=== PATIENT | male | born 1980 | race Caucasian/White ===

== ENCOUNTER 2021-02-13 11:13 | Emergency (ER) | payer SELFPAY ==
--- NOTE | 2021-02-13 11:15 | XR_ITS ---
WS: [id number] KUB, AP view, 02/13/2021 Clinical Data: left flank pain, ? kidney stone Comparison: None. Findings: No abnormal intraabdominal masses or calcifications are seen. There is no dilatated small bowel or ev idence of obstruction. There is a moderate amount of fecal material throughout the colon. There are clips in the left upper quadrant from surgery. XR/XR KUB [id number] Impression: Negative for renal or ureteral calculi.
[2021-02-13 11:32] VITALS: BP 154/95; PULSE 94; RESP 18; TEMP 37.6; O2SAT 98; BMI 19.2
--- NOTE | 2021-02-13 11:48 | ED_ITS ---
HPI - Abdominal Pain General: Chief Complaint: Abdominal Pain Stated Complaint: LEFT SIDE PAIN Time Seen by Provider: 02/13/21 11:41 Source: patient and family (Fianc?) Mode of arrival: ambulatory Limitations: no limitations History of Present Illness: HPI narrative: 40-year-old male patient presents to the emergency department with acute onset of left flank/left abdominal side abdominal pain, nausea vomiting and diarrhea, sudden onset that started this morning at 6 AM. 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 Recently moved here from [place]. He reports has not been able to eat or drink anything without vomiting. He reports felt normal yesterday, last meal intake was at 630 last night. He reports chills, has not been exposed to individuals with illness. His fianc?e is able to help with history of present illness and reports that she has not been ill. He denies EtOH or illicit substance abuse MD elicited complaint: abdominal pain and flank pain Pertinent past history: other (Abdominal trauma with splenectomy 1998) Pain Consistency: constant Location: LUQ, LLQ and L flank Severity: moderate Quality: cramping, stabbing and aching Migration to: no migration Relieving factors: nothing Associated Symptoms: Reports change in stool character, chills, diarrhea, fever(s), nausea and vomiting; Denies dysuria, hematochezia, hematemesis and melena Review of Systems General: Reports: 10 or more systems reviewed and unremarkable except in HPI and below Const: Reports: fever(s), chills, body aches and fatigue; Denies: night sweats or change in sleep pattern Eyes: Denies: blurry vision or eye redness ENMT: Denies: throat pain, uvular edema, dental pain, disequilibrium, nasal discharge, nasal congestion, nasal obstruction, epistaxis or post nasal drip Card: Denies: chest pain, palpitations, irregular heart rhythm, swelling of feet/ankles, dyspnea on exertion or orthopnea Resp: Denies: dyspnea, productive cough, non-productive cough, wheezing or chest congestion GI: Reports: abdominal pain, nausea, vomiting, diarrhea and change in stool character; Denies: hematemesis, hematochezia or melena : Denies: dysuria Musc: Reports: back pain (left flank); Denies: neck pain, joint warmth or joint stiffness Skin/Breast: Denies: rash or pruritus Neuro: Denies: headache(s), weakness in extremities or behavioral changes Psych: Reports: anxiety and change in appetite; Denies: depression or sleeping more Loi/Lymph: Denies: easy bruising PFSH ED PFSH: Medical History (Updated 02/13/21 @ 15:37 by MITCHEL Gómez) Tachycardia Surgical History H/O exploratory laparotomy History of total splenectomy Physical Exam Const: COMMON NORMALS: no acute distress, patient oriented x3 and alert GENERAL APPEARANCE: cooperative, well kempt, well developed and anxious NUTRITIONAL APPEARANCE: thin ORIENTATION/CONSCIOUSNESS: Yes awake, Yes oriented to person, Yes oriented to place and Yes oriented to time HENMT: COMMON NORMALS: normocephalic, atraumatic, external ears normal, Normal external nose present and moist oral mucous membranes HEAD & SCALP: normal to inspection, normocephalic and atraumatic FACE & SINUS: normal facial exam and face symmetric NOSE: Normal external nose present and Normal nares present EXTERNAL EAR: Yes external ears normal MOUTH: lip normal, tongue normal and moist mucous membranes abnormal (Dry) THROAT: tonsils normal and uvula midline; no uvular edema Eye: COMMON NORMALS: Equal, round and reactive pupils present and EOMs intact bilaterally GENERAL EYE: appearance normal, both eyes and all related structures PUPIL: Yes Equal, round and reactive pupils present Neck/C-Spine: COMMON NORMALS: full ROM and no lymphadenopathy GENERAL: Yes normal visual inspection and Yes trachea midline CERVICAL SPINE: Yes cervical ROM normal Lymph: LYMPHATIC: no lymphadenopathy noted Chest: COMMONS NORMALS: normal inspection of the chest and normal palpation of entire chest wall Resp: COMMON NORMALS: normal respiratory effort, No retractions, No use of accessory muscles and clear to auscultation bilaterally EFFORT & INSPECTION: Yes able to speak in complete sentences AUSCULTATION: clear to auscultation bilaterally Cardio: COMMON NORMALS: regular rate, regular rhythm, S1 normal heart sound present, S2 normal heart sound present and Peripheral pulses 2+ throughout RATE: regular rate RHYTHM: regular rhythm HEART SOUNDS: S1 normal heart sound present and S2 normal heart sound present PERIPHERAL PULSES: Peripheral pulses 2+ throughout GI: INSPECTION: Yes normal to inspection, No abdominal wall ecchymosis, No abdominal distension, No central obesity, Yes scar and No visible herniation AUSCULTATION: Yes Hypoactive bowel sounds present PALPATION: Yes Tenderness to palpation present (GI) Details: LLQ and LUQ, Yes Guarding due to palpation present (GI), Yes Rigid due to palpation and No Abdominal wall crepitus present : COMMON NORMALS: Yes no CVA tenderness BLADDER/KIDNEY EXAM: Yes no CVA tenderness Back/Pelvis: COMMON NORMALS: no CVA tenderness, thoracic and lumbar spine normal to inspection and no thoracic nor lumbar tenderness Extremity: COMMON NORMALS: normal to inspection, full ROM, capillary refill normal, no clubbing, cyanosis or edema, no calf tenderness and no pedal edema GENERAL: Yes normal exam except as noted Neuro: COMMON NORMALS: patient oriented x3 and no focal motor deficits SENSORIUM/ORIENTATION: Yes alert, Yes oriented to person, Yes oriented to place and Yes oriented to time SPEECH: speech normal MOTOR EXAM: 5/5 motor strength present throughout Psych: COMMON NORMALS: mental status grossly normal, Normal thought process present, cooperative and speech normal APPEARANCE: Yes well kempt ACTIVITY/MOTOR BEHAVIOR: Yes appropriate eye contact SPEECH: Yes normal speech THOUGHT PROCESS: Normal thought process present MEMORY/COGNITION: Yes memory grossly intact INSIGHT: Good insight present (Psych) JUDGEMENT: Good judgement present (Psych) Skin: COMMON NORMALS: no rashes or lesions noted, no wounds, turgor normal, no petechiae and no mottling GENERAL SKIN EXAM: no rashes or lesions noted, elasticity normal and turgor normal Course Vital Signs: Vital signs: Vital Signs Temperature 99.7 F H 02/13/21 11:32 Pulse Rate 78 02/13/21 15:45 Respiratory Rate 15 02/13/21 15:45 Blood Pressure 115/71 02/13/21 15:45 Pulse Oximetry 96 02/13/21 15:45 MDM - Abdominal Pain MDM Narrative: Medical decision making narrative: 40-year-old male presents to the emergency department with nausea vomiting diarrhea and abdominal pain since this morning. Pain was localized to the left flank/left upper and lower abdomen. CT scan of the abdomen and pelvis with contrast revealed mild submucosal enhancement and with wall thickening and slight induration of the right colon transverse colon suggestive of mild infectious or inflammatory colitis. He received Zofran, Pepcid, and morphine along with IV fluids here in the ED. Nausea resolved, is able to tolerate p.o. fluids without difficulty. He also received Toradol for soreness from vomiting. White blood count noted to be elevated probably possibly due to vomiting. Chemistry without acute findings, patient was placed on Cipro and Flagyl for colitis, advised to follow- up with primary care next week; social service referral placed to help with referral process/appointment. Repeat abdominal exam without pain with reassessment. Differential Diagnosis: Differential diagnosis abdominal pain: Likely abdominal pain, acute appendicitis and gastroenteritis Lab Data: Labs: Lab Results 02/13/21 02/13/21 02/13/21 Range/Units 12:00 12:00 15:04 WBC 15.4 H (4.0-10.0) 10^3/ uL RBC 5.08 (4.1-5.3) 10^6/u L Hgb 17.3 H (11.7-16.6) g/dL Hct 48.8 (42.0-52.0) % MCV 96.1 H (80-94) fL MCH 34.1 H (28.0-34.0) pg MCHC 35.5 (30.0-36.0) g/dL RDW 14.5 (12.1-15.1) % Plt Count 356 (130-400) 10^3/c mm MPV 10.5 H (7.4-10.4) fL Neut % (Auto) 87.8 % Lymph % (Auto) 5.3 % Hernando % (Auto) 5.6 % Eos % (Auto) 0.1 % Baso % (Auto) 0.7 % Neut # (Auto) 13.48 H (1.8-7.7) 10^3/u L Lymph # (Auto) 0.8 (0.8-4.8) 10^3/u L Hernando # (Auto) 0.9 (0.2-0.9) 10^3/u L Eos # (Auto) 0.0 (0.0-0.8) 10^3/u L Baso # (Auto) 0.1 (0.0-0.1) 10^3/u L Nucleated RBC % (a uto) 0 % Nucleated RBCs # 0.0 /100WBC Sodium 137 (136-145) mmol/L Potassium 3.3 L (3.5-5.1) mmol/L Chloride 95 L (98-107) mmol/L Carbon Dioxide 23 (22-29) mmol/L Anion Gap 22.3 H (5-19) BUN 7 (6-20) mg/dL Creatinine 1.1 (0.7-1.2) mg/dL GFR Calculation 73.4 L (90-130) mL/min Glucose 184 H (65-115) mg/dL Calculated Osmolal ity 287 (285-295) mOsm/k g Calcium 10.6 H (8.5-10.5) mg/dL Total Bilirubin 1.1 (0.15-1.2) mg/dL AST 30 (0-40) U/L ALT 21 (0-41) U/L Alkaline Phosphata se 99 (40-130) IU/L Total Protein 8.6 (6.6-8.7) g/dL Albumin 5.5 H (3.5-5.2) g/dL Globulin 3.1 (1.3-4.6) g/dL Lipase 19 (13-60) U/L Urine Color Yellow (Yellow) Urine Appearance Clear (CLEAR) Urine pH 7 (5-7) Ur Specific Gravit y 1.000 L (1.005-1.030) Urine Protein 1+ H (Negative) Urine Glucose (UA) Norm (Normal) Urine Ketones Negative (Negative) Urine Blood 2+ H (Negative) Urine Nitrate Negative (Negative) Urine Bilirubin 1+ H (Negative) Urine Urobilinogen 1 H (Negative) mg/dL Ur Leukocyte Anjali ase Negative (Negative) Urine RBC 0-4 H (0-2) /hpf Urine WBC None (0-5) /hpf Ur Squamous Epith Cells 0-4 H (0-5) /hpf Amorphous Sediment Not Reportable Urine Bacteria Trace (NONE) /hpf Imaging Data ^: Other Xray: Radiologist's impression: [address] [place] [address] XRay Report Signed Patient: JD PETERSON Unit #: [id number] : 1980 Age/Sex: 40 / M ADM Date: 02/13/21 Loc: ER Room/Bed: Attending Dr: Ordering Provider/Ordering MD: Patsy Tapia Date of Service: 02/13/21 Procedure(s): XR KUB [id number] Accession Number(s): [id number] Report Number: [id number] WS: [id number] KUB, AP view, 02/13/2021 Clinical Data: left flank pain, ? kidney stone Comparison: None. Findings: No abnormal intraabdominal masses or calcifications are seen. There is no dilatated small bowel or evidence of obstruction. There is a moderate amount of fecal material throughout the colon. There are clips in the left upper quadrant from surgery. XR/XR KUB [id number] Impression: Negative for renal or ureteral calculi. Dictated By: Celia Cortés MD Signed By: Celia Cortés MD Signed Date/Time: 02/13/211207 DD/ 120 Other Imaging: Radiologist's impression: [place] [address] CT Scan Report Signed Patient: Jd Peterson Unit #: [id number] : 1980 Age/Sex: 40 / M ADM Date: 02/13/21 Loc: ER Room/Bed: Attending Dr: Ordering Provider/Ordering MD: Patsy Tapia Date of Service: 02/13/21 Procedure(s): CT abdomen pelvis w con* [id number] Accession Number(s): [id number] Report Number: [id number] WS: [id number] CT ABDOMEN PELVIS TECHNIQUE: Contrast-enhanced CT of the abdomen and pelvis with coronal and sagittal reformatted images. CLINICAL INFORMATION: abdominal pain COMPARISON: None. DLP: 832.[address] scans at [facility] use at least one of these dose optimization techniques: automated exposure control; mA and/or kV adjustment per patient size (includes targeted exams where dose is matched to clinical indication); or iterative reconstruction. FINDINGS: Mild diffuse fatty infiltration the liver. Normal gallbladder. Normal portal vein and splenic vein. Normal GE junction. Lung bases are well aerated. Normal spleen. Normal pancreas. Normal caliber abdominal aorta. No abdominal lymphadenopathy. No pelvic or inguinal lymphadenopathy. Normal renal parenchymal enhancement. No hydronephrosis. Adrenal glands are normal. Mild diffuse thickening and induration with some mucosal enhancement involving the colon suspicious for infectious or inflammatory colitis. Distal sigmoid colon has a more normal appearance. This involves the cecum, ascending colon, transverse colon and left descending colon. No evidence of small or large bowel obstruction. No other significant findings. CT/CT abdomen pelvis w con* [id number] IMPRESSION: 1. Mild submucosal enhancement with wall thickening and slight induration involving the right colon and transverse colon extending into the descending colon and left lower quadrant. Recommend correlation for mild infectious or inflammatory colitis. 2. Mild diffuse fatty infiltration of the liver. 3. No hydronephrosis in either kidney. 4. No other significant findings. Dictated By: Lamont Trevino MD Signed By: Lamont Trevino MD Signed Date/Time: 02/13/21 1240 DD/ 1234 Discharge Plan Discharge Patient Disposition: Home Clinical Impression: Enteritis Abdominal pain Qualifiers: Abdominal location: lower abdomen, unspecified Qualified Code(s): R10.30 - Lower abdominal pain, unspecified Nausea & vomiting Qualifiers: Vomiting type: unspecified Vomiting Intractability: intractable Qualified Code(s): R11.2 - Nausea with vomiting, unspecified Condition: Stable Prescriptions: New Zofran 4 mg tablet 4 mg PO Q4H 5 Days Qty: 14 RF: 0 Flagyl 500 mg tablet 500 mg PO TID 7 Days Qty: 21 RF: 0 ciprofloxacin HCl 500 mg tablet 500 mg PO BID Qty: 14 RF: 0 Pepcid 20 mg tablet 20 mg PO BID Qty: 20 RF: 0 No Action Tylenol 325 mg Tablet 3,250,650 mg PO QID PRN (Reason: Pain) RF: 0 Advil 200 mg Tablet 200 - 400 mg PO Q6H PRN (Reason: Pain) RF: 0 Discharge Orders: Discharge ED (Routine); Ordered 02/13/21 Ordered By: Patsy Tapia Discharge Diet: Advance as tolerated and Clear Liquid Discharge Activity: Limit activity as instructed Patient Instructions: Gastroenteritis (ED), Acute Nausea and Vomiting (ED), Abdominal Pain (ED), Opioid Safety Activity Restrictions/Additional Instructions: Rest at home today and tomorrow, clear liquid diet for the next 8 hours then advance as tolerated, avoid fried greasy fatty foods for the next 7 days media services coordinator will be contacting you with a follow-up appointment with your primary care provider, you will need to follow-up due to ensure you are improving May take Tylenol as needed for pain Drink plenty of fluids to remain hydrated Return to the emergency department if you develop worsening symptoms such as continued nausea vomiting with use of Zofran or blood in your emesis or bowel movements. 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
--- NOTE | 2021-02-13 11:48 | CT_ITS ---
WS: [id number] CT ABDOMEN PELVIS TECHNIQUE: Contrast-enhanced CT of the abdomen and pelvis with coronal and sagittal reformatted image s. CLINICAL INFORMATION: abdominal pain COMPARISON: None. DLP: 832.[address] scans at [facility] use at least one of these dose optimization techniques: automat ed exposure control; mA and/or kV adjustment per patient size (includes targeted exams where dose is matched to clinical indication); or iterative reconstruction. FINDINGS: Mild diffuse fatty infiltration the liver. Normal gallbladder. Normal portal vein and splenic vein. N ormal GE junction. Lung bases are well aerated. Normal spleen. Normal pancreas. Normal caliber abdomi nal aorta. No abdominal lymphadenopathy. No pelvic or inguinal lymphadenopathy. Normal renal parenchymal enhancement. No hydronephrosis. Adrenal glands are normal. Mild diffuse thickening and induration with some mucosal enhancement involving the colon suspicious for infectious or inflammatory colitis. Distal sigmoid colon has a more normal appearance. This invol ves the cecum, ascending colon, transverse colon and left descending colon. No evidence of small or large bowel obstruction. No other significant findings. CT/CT abdomen pelvis w con* [id number] IMPRESSION: 1. Mild submucosal enhancement with wall thickening and slight induration invo lving the right colon and transverse colon extending into the descending colon and left lower quadrant. Recommend correlation for mild infectious or inflammat ory colitis. 2. Mild diffuse fatty infiltration of the liver. 3. No hydronephrosis in either kidney. 4. No other significant findings.
[2021-02-13] MEDS: sodium chloride 0.9% 1,000 ML 999 ML IV (11:54)
[2021-02-13] MEDS: ondansetron 2 mg/ML SDV 2 mL 4 MG IVP (12:02)
[2021-02-13] MEDS: famotidine 20 mg/2 mL INJ 40 MG IVP (12:02)
[2021-02-13] MEDS: morphine 4 mg/mL SDV 1 mL IVP (12:03)
[2021-02-13] MEDS: iohexol 300 mg/mL 100 mL Btl IV (12:12)
[2021-02-13 12:21] LABS: Basophils # 0.1 10^3/uL (0.0-0.1); Basophils % 0.7 %; Eosinophils % 0.1 %; Hematocrit 48.8 % (42.0-52.0); Hemoglobin 17.3 g/dL (11.7-16.6); Lymphocytes # 0.8 10^3/uL (0.8-4.8); Lymphocytes % 5.3 %; Mean Corpuscular HGB Conc 35.5 g/dL (30.0-36.0); Mean Corpuscular Hemoglobin 34.1 pg (28.0-34.0); Mean Corpuscular Volume 96.1 fL (80-94); Mean Platelet Volume 10.5 fL (7.4-10.4); Monocytes # 0.9 10^3/uL (0.2-0.9); Monocytes % 5.6 %; Neutrophils # 13.48 10^3/uL (1.8-7.7); Neutrophils % 87.8 %; Nucleated Red Blood Cells % 0 %; Platelet Count 356 10^3/cmm (130-400); Red Blood Count 5.08 10^6/uL (4.1-5.3); Red Cell Distribution Width 14.5 % (12.1-15.1); White Blood Count 15.4 10^3/uL (4.0-10.0)
[2021-02-13 12:41] LABS: Alanine Aminotransferase 21 U/L (0-41); Albumin Level 5.5 g/dL (3.5-5.2); Alkaline Phosphatase 99 IU/L (40-130); Anion Gap 22.3 (5-19); Aspartate Amino Transferase 30 U/L (0-40); Blood Urea Nitrogen 7 mg/dL (6-20); Calcium 10.6 mg/dL (8.5-10.5); Carbon Dioxide 23 mmol/L (22-29); Chloride 95 mmol/L (98-107); Globulin 3.1 g/dL (1.3-4.6); Glomerular Filtration Rate 73.4 mL/min (90-130); Glucose 184 mg/dL (65-115); Lipase 19 U/L (13-60); Osmolality Calculated 287 mOsm/kg (285-295); Potassium 3.3 mmol/L (3.5-5.1); Sodium 137 mmol/L (136-145); Total Bilirubin 1.1 mg/dL (0.15-1.2); Total Protein 8.6 g/dL (6.6-8.7)
[2021-02-13] MEDS: ciprofloxacin 500 mg Tablet PO (14:31)
[2021-02-13] MEDS: metroNIDAZOLE 500 MG Tablet PO (14:31)
[2021-02-13] MEDS: ketorolac 30 mg/mL INJ 15 MG IVP (14:32)
[2021-02-13 14:33] VITALS: PULSE 91; RESP 16; O2SAT 98
[2021-02-13 15:24] LABS: Add Urine Microscopic? YES; Bilirubin Urine 1+ (Negative); Blood Urine 2+ (Negative); Glucose Urine UA Norm (Normal); Ketones Urine Negative (Negative); Leukocyte Esterase Urine Negative (Negative); Nitrate Urine Negative (Negative); Protein Urine 1+ (Negative); Urine Appearance Clear (CLEAR); Urine Color Yellow (Yellow); Urobilinogen Urine 1 mg/dL (Negative); pH Urine 7 (5-7)
[2021-02-13 15:25] LABS: Add Urine Culture? No; Bacteria Urine TRACE /hpf; RBC Urine 0-4 /hpf (0-2); Squamous Epithelial Cell Urine 0-4 /hpf (0-5)
[2021-02-13 15:45] VITALS: BP 115/71; PULSE 78; RESP 15; O2SAT 96
--- NOTE | 2021-02-16 10:51 | DCPLANNER ---
hydrogen plant operations manager had message to speak with patient about getting established with a primary care physician. hydrogen plant operations manager spoke with patient, he stated that he would like to get established with a primary care physician but he does not have any insurance at this time. Patient made decision that he would like the patient financial coordinator paperwork sent to him for him to fill out and see where he is at on the slide before scheduling an appointment. hydrogen plant operations manager mailed both of the patient financial coordinator applications to patient to fill out and turn in.
== END 2021-02-13 15:46 | disposition home or self-care (01) ==
PROVIDERS: Emergency Provider Nurse Practitioner Family
DX: K52.9 Noninfective gastroenteritis and colitis, unspecified (principal)
CPT/HCPCS: 74018; 74177; 80053; 81001; 83690; 85025; 96361; 96374; 96375; 99284; J1885; J2270; J2405; J3490; J7030; Q9967